=== PATIENT | female | born 1995 ===

== ENCOUNTER 2021-10-20 05:25 | Day surgery (SDC) | payer OTHER ==
[~2021-10-20 05:25] MED LIST: SYNTHROID50 MCG PO
== END 2021-10-20 14:10 | disposition home or self-care (01) ==
LOC: CIR.AMB 05:25
PROVIDERS: ATTEND Obstetrics & Gynecology
DX: N72 Inflammatory disease of cervix uteri (principal); Z88.0 Allergy status to penicillin; E03.9 Hypothyroidism, unspecified